=== PATIENT | male | born 1970 | race Caucasian/White ===

== ENCOUNTER 2020-05-03 13:58 | Emergency (ER) | payer OTHER ==
[~2020-05-03 13:58] MED LIST: BACTROBAN OINT22 GM EXT; CATAPRES 0.1MG0.1 MG PO; FOLIC ACID1 MG PO; LIBRIUM CAP 1010 MG PO; LIBRIUM CAP 2525 MG PO; NORCO 5-325 TA1 EACH PO; NORFLEX 100 MG100 MG PO; PERCOCET 10-321 EACH PO; STOOL SOFTENER250 MG PO; THIAMINE HCL100 MG PO; TYLENOL 325MG325 MG PO; ULTRAM50 MG PO; ZOFRAN4 MG PO
== END 2020-05-03 15:45 | disposition left against medical advice (07) ==
LOC: ER1 13:58
DX: R22.0 Localized swelling, mass and lump, head (principal); Z53.21 Procedure and treatment not carried out due to patient leaving prior to being seen by health care provider

== ENCOUNTER 2020-06-14 20:55 | Inpatient (IN) | payer OTHER ==
[~2020-06-14] VITALS: Ht 180.3 cm; Wt 125.6 kg
[2020-06-14 21:27] LABS: HEMOGLOBIN 17.4 gm/dl (14.0-17.5); RED BLOOD COUNT 5.31 M/UL (4.20-5.50); WHITE BLOOD COUNT 9.9 K/UL (4.5-11.0)
[2020-06-14 22:10] LABS: BUN/CREATININE RATIO 8 (0-10)
[2020-06-15 07:08] LABS: HEMOGLOBIN 16.4 gm/dl (14.0-17.5); RED BLOOD COUNT 4.99 M/UL (4.20-5.50)
[2020-06-15 07:13] LABS: WHITE BLOOD COUNT 13.3 K/UL (4.5-11.0)
[2020-06-15 07:31] LABS: BUN/CREATININE RATIO 11 (0-10)
== END 2020-06-15 14:10 | disposition left against medical advice (07) | DRG 894 ==
LOC: ER1 20:55 → CDU 23:22 → PROG CARE 23:22
PROVIDERS: Emergency Medicine; ADMIT Internal Medicine
DX: F10.239 Alcohol dependence with withdrawal, unspecified (principal); G40.89 Other seizures; F10.139 Alcohol abuse with withdrawal, unspecified; R74.01 Elevation of levels of liver transaminase levels; D75.89 Other specified diseases of blood and blood-forming organs; Z20.822 Contact with and (suspected) exposure to COVID-19; Z90.49 Acquired absence of other specified parts of digestive tract; Z88.6 Allergy status to analgesic agent; Z88.2 Allergy status to sulfonamides; Z82.49 Family history of ischemic heart disease and other diseases of the circulatory system
CPT/HCPCS: 36415; 70450; 80048; 80053; 83690; 83735; 85025; 93005; 94664; 94760; 96374; 99285; G0480; J2060; J3411; J3475; J7030; U0002

== ENCOUNTER 2020-11-29 12:43 | Emergency (ER) | payer OTHER ==
[2020-11-29 17:54] LABS: HEMOGLOBIN 16.8 gm/dl (14.0-17.5); RED BLOOD COUNT 5.44 M/UL (4.20-5.50); WHITE BLOOD COUNT 11.7 K/UL (4.5-11.0)
[2020-11-29 18:27] LABS: BUN/CREATININE RATIO 11 (0-10)
== END 2020-11-29 19:35 | disposition left against medical advice (07) ==
LOC: ER1 12:43
PROVIDERS: Preventive Medicine Occupational Medicine
DX: F15.10 Other stimulant abuse, uncomplicated (principal); I10 Essential (primary) hypertension; Z20.822 Contact with and (suspected) exposure to COVID-19
CPT/HCPCS: 36600; 70450; 71045; 80053; 80307; 81001; 82009; 82550; 82553; 82803; 83690; 83874; 83880; 84484; 85025; 85652; 86140; 87086; 93005; 99284; G0480; U0002

== ENCOUNTER 2021-03-23 17:00 | Emergency (ER) | payer OTHER ==
[2021-03-23 18:33] LABS: HEMOGLOBIN 14.6 gm/dl (14.0-17.5); RED BLOOD COUNT 4.79 M/UL (4.20-5.50)
[2021-03-23 18:42] LABS: BUN/CREATININE RATIO 9 (0-10)
[2021-03-23] MEDS ORDERED: ZOFRAN ODT 4 MG4 MG PO (20:04)
[2021-03-23] MEDS ORDERED: VALIUM5 MG PO (20:04)
== END 2021-03-23 20:35 | disposition home or self-care (01) ==
LOC: ER1 17:00
PROVIDERS: Family Medicine
DX: R07.9 Chest pain, unspecified (principal); F10.139 Alcohol abuse with withdrawal, unspecified; J44.9 Chronic obstructive pulmonary disease, unspecified; I10 Essential (primary) hypertension; R51.9 Headache, unspecified; F17.200 Nicotine dependence, unspecified, uncomplicated; E66.9 Obesity, unspecified; Z88.2 Allergy status to sulfonamides; Z88.6 Allergy status to analgesic agent; Y90.2 Blood alcohol level of 40-59 mg/100 ml
CPT/HCPCS: 71045; 80053; 82550; 82553; 83735; 83874; 84484; 85025; 93005; 96374; 99285; G0480; J3411; J3475; J7030

== ENCOUNTER 2021-04-01 08:52 | Emergency (ER) | payer OTHER ==
[~2021-04-01] VITALS: Ht 180.3 cm; Wt 125.2 kg
[~2021-04-01 08:52] MED LIST changes: +VALIUM5 MG PO; +ZOFRAN ODT 4 MG4 MG PO
[2021-04-01 09:39] LABS: HEMOGLOBIN 16.9 gm/dl (14.0-17.5); RED BLOOD COUNT 5.52 M/UL (4.20-5.50); WHITE BLOOD COUNT 11.5 K/UL (4.5-11.0)
[2021-04-01 10:14] LABS: BUN/CREATININE RATIO 19 (0-10)
== END 2021-04-01 18:45 | disposition home or self-care (01) ==
LOC: ER1 08:52
PROVIDERS: Family Medicine
DX: R07.9 Chest pain, unspecified (principal); F41.9 Anxiety disorder, unspecified; R51.9 Headache, unspecified; F10.10 Alcohol abuse, uncomplicated; R44.1 Visual hallucinations; R44.0 Auditory hallucinations; F32.A Depression, unspecified; Z20.822 Contact with and (suspected) exposure to COVID-19
CPT/HCPCS: 70450; 71045; 80053; 80307; 81001; 82140; 82550; 82553; 83690; 83735; 83874; 84484; 85025; 85610; 93005; 96374; 99285; G0480; J3411; J3475; J7030; U0002

== ENCOUNTER 2021-09-10 12:57 | Emergency (ER) | payer OTHER ==
[2021-09-10 13:21] LABS: HEMOGLOBIN 15.4 gm/dl (14.0-17.5); RED BLOOD COUNT 5.01 M/UL (4.20-5.50); WHITE BLOOD COUNT 14.6 K/UL (4.5-11.0)
[2021-09-10 15:27] LABS: BUN/CREATININE RATIO 13 (0-10)
[2021-09-10] MEDS ORDERED: PREDNISONE20 MG PO (15:57)
== END 2021-09-10 16:12 | disposition home or self-care (01) ==
LOC: ER1 12:57
DX: J44.1 Chronic obstructive pulmonary disease with (acute) exacerbation (principal); I10 Essential (primary) hypertension; Z86.59 Personal history of other mental and behavioral disorders; Z20.822 Contact with and (suspected) exposure to COVID-19
CPT/HCPCS: 0240U; 36600; 71045; 80053; 82550; 82553; 82803; 83605; 83880; 84484; 85025; 85610; 93005; 94664; 94760; 96374; 99285; J2930

== ENCOUNTER 2021-09-28 10:45 | Inpatient (IN) | payer OTHER ==
[~2021-09-28] VITALS: Ht 180.3 cm; Wt 120.7 kg
[~2021-09-28 10:45] MED LIST changes: +PREDNISONE20 MG PO
[2021-09-28 11:20] LABS: HEMOGLOBIN 14.1 gm/dl (14.0-17.5); RED BLOOD COUNT 4.66 M/UL (4.20-5.50); WHITE BLOOD COUNT 12.3 K/UL (4.5-11.0)
[2021-09-28 11:45] LABS: BUN/CREATININE RATIO 10 (0-10)
[2021-09-28] MEDS ORDERED: VITAMIN D350 MC3 PO (16:50)
[2021-09-28] MEDS ORDERED: HALOPERIDOL10 MG PO (16:51)
[2021-09-28] MEDS ORDERED: NORVASC5 MG PO (16:51)
[2021-09-28] MEDS ORDERED: FLUOXETINE HCL40 MG PO (16:52)
[2021-09-28] MEDS ORDERED: TEGRETOL 200 M200 MG PO (16:52)
[2021-09-28] MEDS ORDERED: METOPROLOL TART50 MG PO (16:53)
[2021-09-28] MEDS ORDERED: MELATONIN5 M2 PO (16:53)
[2021-09-29 05:57] LABS: HEMOGLOBIN 14.7 gm/dl (14.0-17.5); RED BLOOD COUNT 4.83 M/UL (4.20-5.50); WHITE BLOOD COUNT 10.6 K/UL (4.5-11.0)
[2021-09-29 07:07] LABS: BUN/CREATININE RATIO 11 (0-10)
[2021-09-29] MEDS ORDERED: BUPRENORPHIN-N1 EACH SL (16:52)
[2021-09-30 06:25] LABS: HEMOGLOBIN 13.9 gm/dl (14.0-17.5); RED BLOOD COUNT 4.66 M/UL (4.20-5.50)
[2021-09-30 06:27] LABS: WHITE BLOOD COUNT 7.7 K/UL (4.5-11.0)
[2021-09-30 06:54] LABS: BUN/CREATININE RATIO 9 (0-10)
[2021-09-30] MEDS ORDERED: NICOTINE PATCH1 EAC1 TD (09:34)
[2021-09-30] MEDS ORDERED: ISOSORBIDE MONO30 MG PO (09:34)
== END 2021-09-30 19:11 | DRG 880 ==
LOC: ER1 10:45 → MED SURG 4 15:28 → CDU 15:28 → MED SURG 4 09-29 08:56
PROVIDERS: Nurse Practitioner; ADMIT Internal Medicine
PROC: B24BZZZ Ultrasonography of Heart with Aorta (ICD-10-PCS; principal; 2021-09-29)
DX: R45.851 Suicidal ideations (principal); F41.9 Anxiety disorder, unspecified; F19.10 Other psychoactive substance abuse, uncomplicated; F32.9 Major depressive disorder, single episode, unspecified; Z20.822 Contact with and (suspected) exposure to COVID-19; E78.5 Hyperlipidemia, unspecified; I10 Essential (primary) hypertension; R07.89 Other chest pain; Z82.49 Family history of ischemic heart disease and other diseases of the circulatory system; Z88.8 Allergy status to other drugs, medicaments and biological substances; Z79.82 Long term (current) use of aspirin; Z79.899 Other long term (current) drug therapy; Z72.0 Tobacco use; Z88.2 Allergy status to sulfonamides
CPT/HCPCS: ECHO; 36415; 71045; 80053; 80061; 80307; 81001; 82150; 82550; 82553; 82962; 83540; 83550; 83605; 83735; 83880; 84100; 84484; 85025; 85027; 86140; 87040; 93005; 93306; 94760; 96374; 96376; 99285; G0480; J1650; J2270; U0002

== ENCOUNTER 2021-10-23 15:51 | Observation (INO) | payer OTHER ==
[~2021-10-23] VITALS: Ht 180.3 cm; Wt 121.1 kg
[~2021-10-23 15:51] MED LIST changes: +BUPRENORPHIN-N1 EACH SL; +FLUOXETINE HCL40 MG PO; +HALOPERIDOL10 MG PO; +ISOSORBIDE MONO30 MG PO; +MELATONIN5 M2 PO; +METOPROLOL SUCC50 MG PO; +NICOTINE PATCH1 EAC1 TD; +NORVASC5 MG PO; +TEGRETOL 200 M200 MG PO; +VITAMIN D325 MCG PO
[2021-10-23 17:00] LABS: HEMOGLOBIN 14.1 gm/dl (14.0-17.5); RED BLOOD COUNT 4.6 M/UL (4.20-5.50); WHITE BLOOD COUNT 9.5 K/UL (4.5-11.0)
[2021-10-23 17:23] LABS: BUN/CREATININE RATIO 12 (0-10)
[2021-10-24 02:26] LABS: HEMOGLOBIN 13.4 gm/dl (14.0-17.5); RED BLOOD COUNT 4.41 M/UL (4.20-5.50); WHITE BLOOD COUNT 9.1 K/UL (4.5-11.0)
[2021-10-24 03:58] LABS: BUN/CREATININE RATIO 13 (0-10)
[2021-10-24] MEDS ORDERED: SYMBICORT 80-10.2 GM INH (10:35)
[2021-10-24] MEDS ORDERED: ABILIFY10 MG PO (10:35)
[2021-10-24] MEDS ORDERED: POTASSIUM CHLO20 ME2 PO (10:35)
[2021-10-24] MEDS ORDERED: TRAZODONE HCL50 MG PO (10:36)
[2021-10-24] MEDS ORDERED: PROAIR HFA8.5 GM INH (10:36)
[2021-10-24] MEDS ORDERED: ISOSORBIDE MONO30 MG PO (14:41)
[2021-10-24] MEDS ORDERED: TAB-A-VITE TA400 MC1 PO (14:41)
[2021-10-24] MEDS ORDERED: CHLORDIAZEPOXID25 MG PO (14:41)
[2021-10-24] MEDS ORDERED: VITAMIN B-1100 M1 PO (14:41)
== END 2021-10-25 00:13 | disposition short-term general hospital (02) ==
LOC: ER1 15:51 → PROG CARE 18:25 → CDU 18:25 → PROG CARE 21:13 → MED SURG 4 10-24 16:30
PROVIDERS: Preventive Medicine Occupational Medicine; ADMIT Internal Medicine
DX: F10.239 Alcohol dependence with withdrawal, unspecified (principal); F11.20 Opioid dependence, uncomplicated; F41.9 Anxiety disorder, unspecified; F32.A Depression, unspecified; I10 Essential (primary) hypertension; Z91.51 Personal history of suicidal behavior; Z88.2 Allergy status to sulfonamides; Z88.6 Allergy status to analgesic agent; Z88.8 Allergy status to other drugs, medicaments and biological substances; Y90.0 Blood alcohol level of less than 20 mg/100 ml
CPT/HCPCS: 36415; 70450; 71045; 80053; 80061; 80307; 81001; 82140; 82550; 83036; 83540; 83550; 83690; 83735; 83880; 84100; 85025; 85027; 87086; 96374; 96375; 99285; G0378; G0480; J1650; J2060; J3411; J3475; J7030